=== PATIENT | female | born 1990 | race Hispanic/Latino ===

== ENCOUNTER 2024-06-30 17:58 | Emergency (ER) | payer OTHER ==
[2024-06-30] VITALS (7 sets, daily range): BP systolic 101–116; BP diastolic 68–77
[~2024-06-30] VITALS: Ht 157.5 cm; Wt 58.9 kg
[2024-06-30] MEDS ORDERED: Raltegravir Potassium 400 MG TAB PO SCH (18:20)
[2024-06-30 18:55] LABS: URINE BILIRUBIN - DIPSTICK Negative (NEGATIVE); URINE BLOOD DIPSTICK Negative (NEGATIVE); URINE CLARITY Clear; URINE GLUCOSE - DIPSTICK Negative (NEGATIVE); URINE KETONE Negative (NEGATIVE); URINE LEUK ESTERASE Negative (Negative); URINE NITRITE - DIPSTICK Negative (Negative); URINE PROTEIN - DIPSTICK Negative (NEG-TRACE); URINE UROBILINOGEN - DIPSTICK 0.2 E.U./dL (0.2)
[2024-06-30 18:55] LABS: BASO% 0.7 % (0-3); EOS% 1.6 % (0-8); HEMATOCRIT 40.3 % (37.0-47.0); HEMOGLOBIN 13.4 g/dl (12.0-16.0); IMMATURE GRANULOCYTES 0.1 % (0.0-5.0); LYMPH% 38.4 % (15-41); MEAN CELL VOLUME 91.4 fL CALC (80.0-100.0); MEAN CORPUSCULAR HGB 30.4 pG CALC (26.0-32.0); MEAN CORPUSCULAR HGB CONC 33.3 g/dL CAL (32.0-36.0); MONO% 8.2 % (2-13); NEUT# 3.46 thou/uL (2.00-7.15); RED BLOOD COUNT 4.41 mill/uL (4.20-5.60); RED CELL DISTRI WIDTH 12.1 % (11.5-15.5)
[2024-06-30 18:56] LABS: URINE COLOR Yellow
[2024-06-30 19:06] LABS: ALBUMIN 4.9 g/dL (3.2-5.0); ALKALINE PHOSPHATASE 50 u/l (38-126); BILIRUBIN, TOTAL 0.3 mg/dL (0.02-1.3); BUN 22 mg/dL (7-17); CPK 56 u/l (30-135); CREATININE 0.7 mg/dL (0.5-1.0); SGOT/AST 27 u/l (14-36); TOTAL PROTEIN 7.9 g/dL (6.3-8.2)
[2024-06-30] MEDS ORDERED: lamiVUDine/ZIDOVUDINE 150 MG/300 MG COMBO TAB PO SCH (19:17)
[2024-06-30] MEDS ORDERED: Raltegravir Potassium 400 MG TAB PO ONE (19:30)
[2024-06-30] MEDS ORDERED: lamiVUDine/ZIDOVUDINE 150 MG/300 MG COMBO TAB PO ONE (19:35)
[2024-06-30] MEDS ORDERED: ISENTRESS400 MG PO (20:08)
[2024-06-30] MEDS ORDERED: LAMIVUDINE/ZIDO1 TAB PO (20:08)
[2024-06-30] MEDS ORDERED: ZOFRAN4 MG/TAB PO (20:08)
[2024-06-30] MEDS ORDERED: ONDANSETRON 4 MG/TAB ODT SL ONE (20:10)
== END 2024-06-30 20:50 | disposition home or self-care (01) | DRG 605 ==
LOC: ED 17:58
PROVIDERS: Nurse Practitioner
DX: S61.031A Puncture wound without foreign body of right thumb without damage to nail, initial encounter (principal); W46.1XXA Contact with contaminated hypodermic needle, initial encounter; Y92.59 Other trade areas as the place of occurrence of the external cause; Y99.0 Civilian activity done for income or pay